=== PATIENT | female | born 1955 | race Caucasian/White ===

== ENCOUNTER → 2017-02-18 | Outpatient (CLI) | payer BC, OTHER ==
[~2017-02-18] MED LIST: ACIPHEX 20 MG T20 MG PO; ALBUTEROL NEB; CEFTRIAXONE2 G1 IV; CYMBALTA30 MG PO; ESTRACE1 MG PO; FLEXERIL PO; HYDROCODON-ACE1 EAC7 PO; IBUPROFEN 200200 M1 PO; NORCO 5-325 TA1 EACH PO; PREDNISONE 20 M20 M1 PO; PROTONIX40 M1 PO; SYMBICORT80 MCG/4.1 INH; TOBRAMYCIN300 MG/7.5 INH; TRIAMCINOLONE16.5 GM NS; VITAMIN D 5050000 I1 PO
--- NOTE | ~2017-02-18 | CNG ---
[facility] [place] [address] CYTO-NONGYN REPORT PROCEDURE Name: EDUARDOMARILIA GRAYSONAINE Room #: REG [facility] Jelly#: [id number] Admission: 02/18/17 Date of : 51 Discharge: Report #: [id number] Path Case #: [id number] CYTOPATHOLOGY REPORT COLLECTION DATE: 02/18/2017 RECEIVED DATE: 02/18/2017 SUBMITTING PHYS: Dr. Sterling Kimball OTHER PHYS: Dr. Reed Cobian CLINICAL HISTORY: Cath/Bronchoscopy/Bronchiectis SPECIMEN(S) RECEIVED: A.Bronchoalveolar lavage, Left lingula * * * * * * * * * * * * FINAL DIAGNOSIS: A. Lung, left lingula. Bronchoalveolar lavage: - No malignant cells identified. - Bronchial epithelial cells and rare alveolar macrophages present. - Marked acute inflammation. PATHOLOGIST: Luz Wise M.D. REPORT ELECTRONICALLY SIGNED BY: Luz Wise M.D. DATE/TIME: 02/19/2017 16:21 * * * * * * * * * * * * GROSS PATHOLOGY: A. Bronchoalveolar lavage, Left lingula: The specimen is submitted unfixed, labeled "Marilia Sharpe". Received by the Cytology Department is 20 mL of cloudy peach colored fluid. One ThinPrep slide was prepared. (mm 02.18.2017) PHARMACY MANAGER(S): JARAD Garrett([facility]) INITIAL CPT CODE(S): A; 36254 Professional services performed by [facility] at [facility] [address], [place] [address] Technical services performed by [facility] at [address] [place] [address]., [address], [place] [address]. [facility] [address] [place] [address], [facility] [address] [place], [place] [address] [place] [address] [place] [address] CYTO-NONGYN REPORT PROCEDURE Name: EDUARDOMARILIAROBIN ALEJANDRO Room #: REG CLMary Reaves#: [id number] Admission: 02/18/17 Date of : 51 Discharge: Report #: [id number] Path Case #: [id number] PHONE: [phone] DIRECTOR: Reinaldo Burnette M.D. * * * END OF REPORT * * *
== END ==
LOC: CATH 08:47 → 3N 02-20 10:30
DX: J18.9 Pneumonia, unspecified organism (principal); J47.1 Bronchiectasis with (acute) exacerbation; J44.9 Chronic obstructive pulmonary disease, unspecified

== ENCOUNTER 2017-02-26 15:04 | Inpatient (IN) | payer BC, OTHER ==
[~2017-02-26] VITALS: Ht 167.6 cm; Wt 72.6 kg
[~2017-02-26 15:04] MED LIST changes: -CEFTRIAXONE2 G1 IV; -PREDNISONE 20 M20 M1 PO; -TOBRAMYCIN300 MG/7.5 INH
[2017-02-26 16:00] VITALS: BP 101/58
[2017-02-26 17:30] LABS: HEMATOCRIT 34.1 % (37.0-47.0); HEMOGLOBIN 11.3 gm/dL (12.0-15.0); MCH 26.7 pg (26.0-34.0); MCV 80.7 fL (80.0-100.0); RBC 4.23 mil/uL (4.20-5.00); WBC 10.4 thou/uL (4.0-11.0)
[2017-02-26 17:45] LABS: CREATININE 0.6 mg/dL (0.6-1.0); POTASSIUM 3.4 mmol/L (3.5-5.1)
[2017-02-26 20:15] VITALS: BP 124/53
[2017-02-27] VITALS (7 sets, daily range): BP systolic 104–140; BP diastolic 46–81
[2017-02-27 06:18] LABS: ABSOLUTE NEUTROPHILS 6.5 thou/uL (1.4-8.2); BASOPHILS 0.2 % (0.0-2.0); HEMATOCRIT 33.3 % (37.0-47.0); HEMOGLOBIN 10.8 gm/dL (12.0-15.0); LYMPHOCYTES 16.3 % (24.0-44.0); MCH 26.2 pg (26.0-34.0); MCHC 32.4 g/dL (28.0-37.0); MCV 81.1 fL (80.0-100.0); MONOCYTES 2.8 % (1.0-8.0); PLATELET COUNT 294 thou/uL (150-400); POLYS 80.7 % (36.0-66.0); RBC 4.11 mil/uL (4.20-5.00); RDW 16.1 % (10.5-14.5)
[2017-02-27 06:32] LABS: MANUAL DIFF NO
[2017-02-27 06:35] LABS: CALCIUM 8.9 mg/dL (8.5-10.1); CREATININE 0.6 mg/dL (0.6-1.0); POTASSIUM 3.5 mmol/L (3.5-5.1)
[2017-02-27] MEDS ORDERED: TOBRAMYCIN300 MG/7.5 INH (15:27)
[2017-02-27] MEDS ORDERED: CEFTRIAXONE2 G1 IV (15:28)
[2017-02-27] MEDS ORDERED: PREDNISONE 20 M20 M1 PO (15:29)
== END 2017-02-27 19:48 | disposition home health service (06) | DRG 190 ==
LOC: 4S 15:04
PROVIDERS: Family Medicine; Internal Medicine Pulmonary Disease
PROC: 02HV33Z Insertion of Infusion Device into Superior Vena Cava, Percutaneous Approach (ICD-10-PCS; principal; 2017-02-26)
DX: J44.0 Chronic obstructive pulmonary disease with (acute) lower respiratory infection (principal); J15.1 Pneumonia due to Pseudomonas; J44.1 Chronic obstructive pulmonary disease with (acute) exacerbation; K21.9 Gastro-esophageal reflux disease without esophagitis; M54.9 Dorsalgia, unspecified; G89.29 Other chronic pain; Z79.899 Other long term (current) drug therapy; Z88.0 Allergy status to penicillin; Z88.1 Allergy status to other antibiotic agents; Z88.8 Allergy status to other drugs, medicaments and biological substances; Z88.2 Allergy status to sulfonamides; Z83.3 Family history of diabetes mellitus; Z82.49 Family history of ischemic heart disease and other diseases of the circulatory system; Z87.891 Personal history of nicotine dependence; Z87.01 Personal history of pneumonia (recurrent)
CPT/HCPCS: 10102; 27001

== ENCOUNTER → 2017-03-10 | Outpatient (CLI) | payer BC, OTHER ==
[~2017-03-10] MED LIST changes: +CEFTRIAXONE2 G1 IV; +PREDNISONE 20 M20 M1 PO; +TOBRAMYCIN300 MG/7.5 INH
== END ==
LOC: RAD 12:22
DX: J47.9 Bronchiectasis, uncomplicated (principal)

== ENCOUNTER → 2017-12-15 | Outpatient (CLI) | payer OTHER | LOC: RAD 14:00 | DX: J98.4 Other disorders of lung (principal) ==

== ENCOUNTER → 2019-02-21 | Outpatient (CLI) | payer OTHER | LOC: RAD 12:20 | DX: R05 Cough (principal); R06.00 Dyspnea, unspecified ==

== ENCOUNTER 2019-04-18 16:42 | Inpatient (IN) | payer OTHER ==
[~2019-04-18] VITALS: Ht 167.6 cm; Wt 70.3 kg
[2019-04-18 16:53] VITALS: BP 108/47
[2019-04-18] MEDS ORDERED: PREMARIN30 GM TOP (17:05)
[2019-04-18 17:28] LABS: HEMOGLOBIN 11.3 gm/dL (12.0-15.0); MCH 25.7 pg (26.0-34.0); MCHC 32.2 g/dL (28.0-37.0); MCV 79.7 fL (80.0-100.0); PLATELET COUNT 200 thou/uL (150-400); RBC 4.39 mil/uL (4.20-5.00); RDW 17.8 % (10.5-14.5); WBC 11.5 thou/uL (4.0-11.0)
[2019-04-18 17:32] LABS: ANION GAP 9 mmol/L (7-16); BUN 5 mg/dL (7-18); CALCIUM 8.3 mg/dL (8.5-10.1); CHLORIDE 98 mmol/L (98-107); CO2 27 mmol/L (21-32); CREATININE 0.6 mg/dL (0.6-1.0); GLUCOSE 101 mg/dL (74-106); POTASSIUM 3.2 mmol/L (3.5-5.1); SODIUM 134 mmol/L (136-145)
[2019-04-18 17:33] LABS: BE(vivo) 2.7 mmol/L (-2 to +3); HCO3 26.4 mmol/L (22.0-26.0); PCO2 VENOUS 37.6 mmHg (41.0-51.0); PO2 VENOUS 132.7 mmHg (35.0-45.0)
[2019-04-18 17:42] LABS: ALBUMIN 2.8 g/dL (3.4-5.0); SGOT 27 U/L (15-37); SGPT 20 U/L (30-65); TOTAL BILIRUBIN 0.6 mg/dL (<0.1-1.0); TOTAL PROTEIN 7.3 g/dL (6.4-8.2); TROPONIN-I <0.06 ng/mL (<0.06)
[2019-04-18 17:46] LABS: ABSOLUTE NEUTROPHILS 9.7 thou/uL (1.4-8.2); ANISOCYTOSIS 2+; MICROCYTES 1+; POLYCHROMASIA OCCASIONAL
[2019-04-18 18:31] VITALS: BP 112/53
[2019-04-18 19:29] VITALS: BP 108/48
[2019-04-18 19:58] VITALS: BP 105/47
--- NOTE | 2019-04-18 23:28 | NUR ---
Pt arrived from ED at 1942 via cart. A/OX4,VSS.Admission paperwork signed.Pt is up ad eamon encouraged to call for help as needed. Does have a productive cough,wheezes and c/o ribcage pain with coughing medicated per EMAR.IVF infusing via LAC w/o problems. Sputum/UA cultures pending collection. Will continue to monitor pt.
[2019-04-18 23:44] VITALS: BP 88/58
[2019-04-19 03:43] VITALS: BP 129/61
[2019-04-19 05:53] LABS: HEMATOCRIT 33.6 % (37.0-47.0); MCH 26.2 pg (26.0-34.0); MCHC 32.8 g/dL (28.0-37.0); MCV 79.7 fL (80.0-100.0); RBC 4.22 mil/uL (4.20-5.00); RDW 17.8 % (10.5-14.5); WBC 9.7 thou/uL (4.0-11.0)
[2019-04-19 06:18] LABS: CALCIUM 8.2 mg/dL (8.5-10.1); CREATININE 0.4 mg/dL (0.6-1.0); POTASSIUM 3.3 mmol/L (3.5-5.1)
[2019-04-19 08:57] VITALS: BP 108/47
--- NOTE | 2019-04-19 09:13 | EKG ---
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 : 1955 Requested By: Jace Layne Order Number: [id number] MD: Ti Carlisle Measurements Intervals [place] Rate: 106 P: 60 NM: 134 QRS: -14 QRSD: 77 T: 53 QT: 311 QTc: 413 Interpretive Statements Sinus tachycardia Probable left atrial enlargement Anteroseptal infarct, age indeterminate No previous ECG available for comparison Electronically Signed On 04-19-2019 9:13:17 CDT by Ti Carlisle [email or web address] ��������������������������������������������� <ELECTRONICALLY SIGNED> ���������������������������������������� By: Ti Carlisle MD ��������������������������������������������� 04/19/1915 54 Ti Carlisle MD /ANA CRISTINA
--- NOTE | 2019-04-19 13:23 | NUR ---
PT ADMITTED RELATED TO PNEUMONIA. CM REVIEWED CHART AND SPOKE WITH CARE TEAM. CM MET WITH PT AT BEDSIDE THIS DAY. PT IS A&O X4. CM ROLE INTRODUCED. PT INDICATED SHE LIVES IN A HOUSE WITH HER DTR WITH 4-5 STEPS TO ENTER AND A SET OF STEPS TO THE BASEMENT. 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 PT INDICATED SHE HAD HOME INFUSION THROUGH [facility] AND HH THROUGH [facility] IN THE PAST. CM TO FOLLOW INDICATED WITH DC PLANNING.
[2019-04-19 13:41] LABS: URINE BILIRUBIN NEGATIVE (Negative); URINE BLOOD NEGATIVE (Negative); URINE CLARITY CLEAR; URINE COLOR YELLOW; URINE GLUCOSE-RANDOM* NEGATIVE (Negative); URINE KETONES NEGATIVE (Negative); URINE LEUKOCYTES NEGATIVE (Negative); URINE NITRITE NEGATIVE (Negative); URINE PROTEIN (DIPSTICK) NEGATIVE (Negative); URINE SPECIFIC GRAVITY <= 1.005 (1.005-1.035); URINE UROBILINOGEN 0.2 E.U./dl (0.2-1.0)
[2019-04-19 15:31] VITALS: BP 102/49
[2019-04-19 20:31] VITALS: BP 109/53
--- NOTE | 2019-04-19 21:17 | NUR ---
PATIENT ALERT AND ORIENTED AND UP AD MATIAS. HAS PRODUCTIVE COUGH AND ON IV ANTIBIOTICS. FAMILY AT BEDSIDE.
--- NOTE | 2019-04-20 05:25 | NUR ---
ASSUMED CARE OF PT AT 1900HRS. PT AOX4 AND UP AD MATIAS. NO COMPAINTS OF NAUSEA OR PAIN THIS SHIFT. BREATHING AND ABX TREATMENT CONTINUED. PT WAS ABLE TO SLEEP PART OF THE SHIFT. VSS AND NO S/S OF ACUTE DISTRESS. WILL CONTINUE TO MONITOR.
[2019-04-20 06:25] LABS: HEMATOCRIT 32.7 % (37.0-47.0); HEMOGLOBIN 10.6 gm/dL (12.0-15.0); MCH 25.9 pg (26.0-34.0); MCHC 32.3 g/dL (28.0-37.0); MCV 80.2 fL (80.0-100.0); RBC 4.07 mil/uL (4.20-5.00); RDW 17.7 % (10.5-14.5); WBC 6.9 thou/uL (4.0-11.0)
[2019-04-20 06:45] LABS: CALCIUM 8.1 mg/dL (8.5-10.1); CREATININE 0.6 mg/dL (0.6-1.0); POTASSIUM 3.4 mmol/L (3.5-5.1)
[2019-04-20 08:34] VITALS: BP 113/64
[2019-04-20 15:18] VITALS: BP 106/56
--- NOTE | 2019-04-20 18:35 | NUR ---
Patient continues on IV ABT therapy for pnuemonia; she has tolerated these tx's well. Rales auscultated in right lung noel, clear in left lung noel. Vital signs WNL's, BS x's 4, ABD is soft et non-tender, skin is clean, warm, dry et intact; she denies pain. Patient has a productive, loose cough, sputum is yellowish colored. Patient has been up ad-eamon. IV in left anticubital space, is saline locked. Will continue to monitor et report to on-coming nurse.
[2019-04-20 19:00] VITALS: BP 104/53
--- NOTE | 2019-04-21 01:58 | NUR ---
ASSUMED CARE AROCECILYN 1900. AXOX4. SPECIMENS COLLECTED PER MD ORDER. NO S/S ACUTE DISTRESS NOTED OR REPORTED AT THIS TIME. WILL CONT TO MONITOR FOR ANY CHANGES IN CONDITION.
[2019-04-21 03:35] VITALS: BP 120/60
[2019-04-21 05:29] LABS: CALCIUM 8.6 mg/dL (8.5-10.1); CREATININE 0.6 mg/dL (0.6-1.0); POTASSIUM 3.4 mmol/L (3.5-5.1)
[2019-04-21 05:47] LABS: HEMATOCRIT 36.1 % (37.0-47.0); HEMOGLOBIN 11.4 gm/dL (12.0-15.0); MCH 25.7 pg (26.0-34.0); MCHC 31.6 g/dL (28.0-37.0); MCV 81.2 fL (80.0-100.0); RBC 4.45 mil/uL (4.20-5.00); RDW 17.8 % (10.5-14.5); WBC 6.9 thou/uL (4.0-11.0)
[2019-04-21 07:24] VITALS: BP 115/56
[2019-04-21 15:14] VITALS: BP 106/41
[2019-04-21 19:50] VITALS: BP 128/54
--- NOTE | 2019-04-21 20:23 | NUR ---
ASSUMED CARE OF PATIENT AT 0715, PATIENT ALERT AND ORIENTED X 4. PATIENT UP AD MATIAS IN HER ROOM. PATIENT DENIES PAIN THIS SHIFT. PATIENT HAS LEFT AC IV IN PLACE WITH NS AT 75CC/HR, RECEIVED 2 IV ANTIBIOTICS THIS SHIFT. POTASSIUM LEVEL 3.4, RECEIVED POTASSIUM 40MEQ X 1 THIS SHIFT. PATIENT CONTINUES TO HAVE CONGESTED COUGH, DIMINISHED LUNGS, SCHEDULED BREATHING TREATMENTS. WILL CONTINUE TO MONITOR.
--- NOTE | 2019-04-22 03:02 | NUR ---
ASSUMED CARE OF PT AT 1900HRS. PT AOX4 AND UP AD MATIAS. PT DENIES NAUSEA OR PAIN. BREATHING AND ABX TREATMENT CONTINUED. PT WAS ABLE TO SLEEP PART OF THE SHIFT. NO S/S OF ACUTE DISTRESS. WILL CONTINUE TO MONITOR.
[2019-04-22 08:32] VITALS: BP 123/65
[2019-04-22 10:54] LABS: ABSOLUTE NEUTROPHILS 7.2 thou/uL (1.4-8.2); BASOPHILS 0.5 % (0.0-2.0); EOSINOPHILS 0.2 % (0.0-3.0); HEMATOCRIT 34.1 % (37.0-47.0); HEMOGLOBIN 10.9 gm/dL (12.0-15.0); LYMPHOCYTES 11.2 % (24.0-44.0); MCH 25.8 pg (26.0-34.0); MCHC 32.1 g/dL (28.0-37.0); MCV 80.2 fL (80.0-100.0); MONOCYTES 3.1 % (1.0-8.0); PLATELET COUNT 290 thou/uL (150-400); RBC 4.25 mil/uL (4.20-5.00); RDW 17.7 % (10.5-14.5); WBC 8.5 thou/uL (4.0-11.0)
[2019-04-22 10:59] LABS: CALCIUM 8.9 mg/dL (8.5-10.1); CREATININE 0.7 mg/dL (0.6-1.0); POTASSIUM 4.1 mmol/L (3.5-5.1)
--- NOTE | 2019-04-22 12:24 | HC ---
[facility] [place] [address] CONSULTATION Name: MARILIA CLARK Room #: 459-P ADM IN M.R.#: [id number] Admission: 04/18/19 ������������������ Attend Phys: Pk Panda MD Discharge: ������������������ Date of : 51 Report #: [id number] THIS REPORT FOR: //name// CC: Reed Panda DATE OF SERVICE: 04/20/2019 INFECTIOUS DISEASE CONSULTATION REASON FOR CONSULTATION: I was asked to evaluate concerning bilateral pulmonary infiltrates. HISTORY OF PRESENT ILLNESS: The patient is a 63-year-old with underlying history of bronchiectasis and COPD with chronic bronchitis. Admitted with approximately 1 week of progressive cough, shortness of breath and most recent fever over 101 degrees. Initial onset was with cough and shortness of breath, became hoarse. Fever and chills. No known exposure to ill persons. No travel. This progressed and developed fever over 101 degrees. She has had chronic bronchitis and bronchiectasis. She uses a vest for physiotherapy 2 to 3 times a day. She is on inhalers. She has been on no recent corticosteroids. She has been worked out previously with CT imaging. She has undergone previous bronchoscopy in 2017 with evidence of Pseudomonas stutzeri pneumonia. AFB and fungus cultures were negative. Last PFTs in February of this year showed an FEV1 38% predicted. CT scan 03/29/2019 showed progressive disease over the last 2 years with bilateral bronchial thickening, bronchiectasis, mucus plugging and reticulonodular infiltrates. The patient has no HIV risk factors. No tuberculosis exposure. No travel outside the [place]. IMMUNIZATIONS: Up-to-date. She has been followed in the Pulmonary Clinic. Following admission, she was placed on azithromycin and ceftriaxone, later switched to cefepime. MEDICATIONS: As noted above with no additions. She is on corticosteroids. She was previously on tobramycin inhalation in 2017. Her insurance, however, quit paying and she discontinued this program. ALLERGIES: IODINE, CIPROFLOXACIN. PAST MEDICAL HISTORY: Pulmonary disease as noted above, cataract surgery, breast lumpectomy, bladder suspension surgery. FAMILY HISTORY: Diabetes. [facility] [address] [place] [address] CONSULTATION Name: EDUARDOMARILIA JAVON Room #: 459-P [facility] IN ..#: [id number] Admission: 04/18/19 ������������������ Attend Phys: Pk Panda MD Discharge: ������������������ Date of : 51 Report #: [id number] SOCIAL HISTORY: Past smoker, no significant alcohol intake, no HIV risks. REVIEW OF SYSTEMS: Ten-point review was negative other than what is described above. PHYSICAL EXAMINATION: VITAL SIGNS: She was afebrile and hemodynamically stable. GENERAL: She is alert and cooperative and pleasant, sitting up to the side of the bed. SKIN: Without rash or decubitus. No palpable adenopathy. The patient was thin in stature. EYES: Without scleral icterus. MOUTH: Without mucositis. NECK: Supple, with no thyromegaly or mass. LUNGS: She has scattered rhonchi heard posteriorly. No other adventitious sounds. No consolidation. HEART: Regular, without murmur, gallop or rub. ABDOMEN: Soft and nontender with no hepatosplenomegaly or mass. EXTREMITIES: Without clubbing, cyanosis or edema. NEUROLOGIC: Cranial nerves were intact. Strength in upper and lower extremities was normal. Deep tendon reflexes normal. Sensation intact in upper and lower extremities. Mood was normal with no anxiety or depression. BACK: Nontender with no CVA tenderness. GENITAL AND RECTAL: Not performed. LABORATORY STUDIES: Hemoglobin 10, WBC 6.9, platelet count 193,000. Creatinine 0.6. Gram stain shows gram-negative bacilli and yeast. Blood cultures are negative. Today, urinalysis unremarkable. Chest x-ray showed right greater than left basilar infiltrate on top of chronic pulmonary changes. IMPRESSION: 1. ____ bronchiectasis, chronic bronchitis, presents with an exacerbation of such. Also, has basilar infiltrates consistent with community-acquired pneumonia. Has previously been known to grow Pseudomonas stutzeri and concerned that she may have underlying mycobacterial infection. 2. Underlying chronic obstructive pulmonary disease. 3. Bronchiectasis. RECOMMENDATIONS: We will continue broad antibiotic coverage, pending further culture results. Check for legionella, Strep pneumoniae, histoplasma and screen for Mycobacterium avium complex rather atypical bacteria. She has no risk factors for tuberculosis. In addition, we will look into further maintenance therapies. Might consider suppressive azithromycin or possibly going back on tobramycin depending upon her culture results. I would like to ensure that her sputum cultures are negative for AFB prior to starting azithromycin program. We [address] [address] CONSULTATION Name: MARILIA CLARK Room #: 459-P ADM IN M.R.#: [id number] Admission: 04/18/19 ������������������ Attend Phys: Pk Panda MD Discharge: ������������������ Date of : 51 Report #: [id number] will also await screening cultures for Pseudomonas prior to initiating aerosolized tobramycin. ��������������������������������������������� <ELECTRONICALLY SIGNED> ���������������������������������������� By: Fidencio Johnson MD ��������������������������������������������� 04/22/19 1224 [id number] Fidencio Johnson MD /nt
[2019-04-22 14:29] VITALS: BP 135/65
--- NOTE | 2019-04-22 20:35 | NUR ---
ASSUMED CARE OF PATIENT AT 0715, PATIENT ALERT AND ORIENTED X 4. UP AD MATIAS IN ROOM. VSS. COUGH IMPROVING, SCHEDULED BREATHING TREATMENTS. C/O CONSTIPATION THIS AM, RECEIVED MIRALAX, HAD 2 SMALL STOOLS. PATIENT HAS LEFT AC IV WITH NS AT 75CC/HR. STILL WAITING ON CULTURE RESULTS. ROOM AIR, WILL CONTINUE TO MONITOR.
[2019-04-22 21:15] VITALS: BP 109/82
--- NOTE | 2019-04-23 03:27 | NUR ---
PATIENT AOX4 MAKES NEEDS KNOWN. PATIENT IS UP AT MATIAS.PATIENT HAS A PRODUCTIVE COUGH THIS SHIFT, SPUTUM COLLECTED AND TAKEN TO THE LAB. NO SHORTNESS OF AIR OR DISTRESS NOTED THIS SHIFT. PATIENT IN BED SLEEP AT THIS TIME BREATHING REGULAR AND UNLABOURED.
[2019-04-23 05:10] VITALS: BP 142/58
[2019-04-23 07:54] VITALS: BP 137/78
[2019-04-23 14:06] LABS: HISTOPLASMA MYCELIAL-ID Negative (Negative)
--- NOTE | 2019-04-23 15:21 | NUR ---
Assumed pt care this am, ray is at the bedside. Pt verbalizaed dizzyness and pain with movement concentrated on the back of her neck and head. Pain is manged with medications, preferred medication is ibuprofen and acetamenophen. PT was able to work with the pt, and she was able to ambualte to go to the toilet do some adl's and get back to bed, dizzyness has been noted but was able to bounce back once pt was able to rest. POC being followed, pt being monitored for signs of distress, currently asleep.
[2019-04-23 16:21] VITALS: BP 119/67
[2019-04-23 17:10] LABS: HISTOPLASMA MYCELIAL-CF Negative (Neg:<1:2)
[2019-04-23 19:17] VITALS: BP 122/63
--- NOTE | 2019-04-24 03:00 | NUR ---
PATIENT AOX4 MAKES NEEDS KNOWN. PATIENT TOLD THIS NURSE THE FORGOT TO ORDER TESSALON PERLES FOR HER COUGH. CALLED CRISIS COUNSELOR NEW ORDER FOR TESSALON PERLES Q 8 HOURS. NO COUGH/ SHORTNESS OF AIR/DISTRESS NOTED THIS SHIFT. PATIENT ON ROOM AIR O2 SAT > 95%.PATIENT DENIED PAIN OR DISCOMFORT. PATIENT IN BED ASLEEP AT THIS TIME BREATHING REGULAR AND UNLABOURED.
[2019-04-24 07:45] VITALS: BP 90/42
[2019-04-24 08:00] VITALS: BP 142/55
[2019-04-24] MEDS ORDERED: TESSALON PERLE100 MG PO (12:14)
[2019-04-24] MEDS ORDERED: LEVAQUIN 750 M750 MG PO (12:15)
[2019-04-24] MEDS ORDERED: PREDNISONE 10 M10 MG PO (12:44)
[2019-04-24 12:49] VITALS: BP 142/55
--- NOTE | 2019-04-24 13:26 | NUR ---
FOR 04/23/19 AM SHIFT Assumed pt care this am, VS have been stable, slight discomfort was verbalized on her chest due to coughing from the previous night. Pt is up at eamon. No other signs or verbalizations of distress have been noted. Pt does express she wants to go home heidy. POC followed. endoersed to the night nurse. FOR 04/24/19 Assumed pt care this am, pt has not had a bad coughing episode today. Was seen by the MD's, DC instructions and prescriptions given to the pt, IV removed, POC followed, medication and diet is well toleated. Awaiting family to pepper picker the pt.
[2019-04-25 22:07] LABS: ADENOVIRUS Negative (Negative); INFLUENZA A Negative (Negative); INFLUENZA B Negative (Negative); METAPNEUMOVIRUS Negative (Negative); PARAINFLUENZA 1 Negative (Negative); PARAINFLUENZA 2 Negative (Negative); PARAINFLUENZA 3 Negative (Negative); RHINOVIRUS Positive (Negative); RSV A Negative (Negative); RSV B Negative (Negative)
== END 2019-04-24 14:08 | disposition home or self-care (01) | DRG 871 ==
LOC: ER 16:42 → EROBS 18:05 → 4W 18:05
PROVIDERS: Emergency Medicine; Internal Medicine; Pediatrics; Specialist; ADMIT Hospitalist
DX: A41.9 Sepsis, unspecified organism (principal); J18.9 Pneumonia, unspecified organism; J47.1 Bronchiectasis with (acute) exacerbation; E87.6 Hypokalemia; B96.5 Pseudomonas (aeruginosa) (mallei) (pseudomallei) as the cause of diseases classified elsewhere; Z16.24 Resistance to multiple antibiotics; D64.9 Anemia, unspecified; Z88.1 Allergy status to other antibiotic agents; Z91.041 Radiographic dye allergy status; Z88.0 Allergy status to penicillin; Z88.2 Allergy status to sulfonamides; Z79.899 Other long term (current) drug therapy; Z98.49 Cataract extraction status, unspecified eye; Z83.3 Family history of diabetes mellitus; Z87.891 Personal history of nicotine dependence; Z82.49 Family history of ischemic heart disease and other diseases of the circulatory system
CPT/HCPCS: 10040

== ENCOUNTER → 2019-05-05 | Outpatient (CLI) | payer OTHER ==
[~2019-05-05] MED LIST changes: +LEVAQUIN 750 M750 MG PO; +PREDNISONE 10 M10 MG PO; +PREMARIN30 GM TOP; +TESSALON PERLE100 MG PO
== END ==
LOC: RAD 10:03
DX: J84.10 Pulmonary fibrosis, unspecified (principal); J98.4 Other disorders of lung; Z88.8 Allergy status to other drugs, medicaments and biological substances; Z88.2 Allergy status to sulfonamides

== ENCOUNTER → 2021-02-26 | Outpatient (CLI) | payer OTHER ==
[~2021-02-26] MED LIST changes: +ARNUITY ELLIPT50 MCG INH; +DIFLUCAN100 MG PO; +IPRATROPIUM BRO30 ML NASAL; +PREMARIN0.9 MG PO; +SPIRIVA RESPIMAT4 G1 INH; +ZITHROMAX250 MG PO
[2021-02-26 11:45] VITALS: BP 111/36
--- NOTE | 2021-02-26 12:40 | NUR ---
VAT PLACED A PICC FOR OUTPT ABX
--- NOTE | 2021-02-26 13:45 | NUR ---
HERE FOR PICC LINE PLACEMENT AND 1ST DOSE MEROPENEM. PICC PLACED BY VASCULAR ACCESS NURSE WITH PLACEMENT CONFIRMATION RECEIVED. PT TOLERATED WELL. DAMARI PRICE, WITH MALICK CAME TO DO FULL PT TEACHING FOR HOME INFUSIONS. PT WITH LOTS OF QUESTIONS, ALL ANSWERED. VERY ANXIOUS, ESPECIALLY ABOUT FINANCIAL RESPONSIBILITY. TOLERATED MEROPENEM WITH NO S/S REACTION. LABS NOT DRAWN HERE. FORWARDED ORDER TO [facility] WHO WILL HAVE HOME HEALTH NURSING DRAW THE INITIAL LABS AND THE WEEKLY LABS. PT DISMISSED POST IN STABLE CONDITION.
[2021-02-26 14:08] VITALS: BP 111/36
== END ==
LOC: OPONC 09:52 → EDSTATUS 11:01 → OPONC 11:07
PROVIDERS: ATTEND Specialist
DX: J15.6 Pneumonia due to other Gram-negative bacteria (principal); J47.1 Bronchiectasis with (acute) exacerbation
CPT/HCPCS: 27000; 95000

== ENCOUNTER 2021-03-15 18:50 | Inpatient (IN) | payer OTHER ==
[~2021-03-15] VITALS: Ht 167.6 cm; Wt 70.8 kg
--- NOTE | ~2021-03-15 | EMS ---
[facility] [address] [place] [address] EMS Patient Care Report Name: MARILIA CLARK Room #: REG ARTURO Reaves#: [id number] Admission: 03/15/21 Attend Phys: Discharge: Date of : 51 Report #: [id number] THIS REPORT FOR: //name// Report Transmitted: 03/15/2021 20:[address] [facility] Incident [id number] @ 03/15/2021 17:54 Incident Location [address] [place], [facility] Patient MARILIA CLARK Female, 65 Years 1955 Patient Address [address] [place] [address] Patient History Other, Patient Allergies Sulfa,Iodine,Cipro, Patient Medications Pantoprazole, Chief Complaint SOA Disposition Transported No Lights/[employer] Dispatch Reason Chest Pain (Non-Traumatic) Transported To [facility] units dispatched to the residence of a 65 year old female pt with a chief complaint of SOA. Upon arrival crew located pt sitting upright in chair. Pt presented with a patent airway and warm dry skin. Pt stated that her SOA had subsided and stated she was concerned over her picc line bleeding. Pt had a [facility] [address] [place] [address] EMS Patient Care Report Name: MARILIA CLARK Room #: REG ER Jelly#: [id number] Admission: 03/15/21 Attend Phys: Discharge: Date of : 51 Report #: [id number] picc line placed in her right AC for iv antibiotic infusions. Pt stated that after her infusion she experienced a sudden numbness in her right arm and chest pain. Pt stated that it was "normal" for her to experience the chest pain but the numbness in her arm was new. Pt stated that the symptoms had subsided and reported she was feeling SOA from panicking about the bleeding. Bleeding was controlled at this time. There appeared to be no active bleeding or damage to the picc line at this time. Pt was placed on stretcher by crew and secured using straps. 3 lead ECG was preformed and pt was monitored for rhythm changes. Pt stated that when the episode occurred she was unable to move her right hand. Pt was negative for arm drift, slurred speech or facial droppage at this time. Pt stated her main concern at this time was her picc line. Pt was transported without incident to [facility] and care was transferred to ED staff. Initial Vitals @18:30P: 93,R: 22,CO: 0,SpO2: 94, @18:18P: 103,SpO2: 91, @18:20P: 103,BP: 110/66, @18:36P: 83,R: 23,BP: 117/63,Pain: 0/10,GCS: 15,SpO2: 95,Revised Trauma: 12, @18:07P: 105,BP: 109/54,Pain: 0/10,GCS: 15,CO: 0,SpO2: 93, Assessments @18:07MENTAL:Person Oriented,Time Oriented,Place Oriented,Event Oriented,SKIN:HEENT:Head/Face: No Abnormalities,LUNG SOUNDS:General: No Abnormalities,ABDOMEN:General: No Abnormalities,PELVIS//GI:No Abnormalities,EXTREMITIES:Right Arm: Other,Capillary Refill: Right Upper: < 2 Sec,Left Arm: No Abnormalities,Left Leg: No Abnormalities,Right Leg: No Abnormalities,PULSE:Radial: 2+ Normal,NEURO:No Abnormalities,@18:25MENTAL:No Abnormalities,SKIN:No Abnormalities,HEENT:Head/Face: No Abnormalities,Eyes: No Abnormalities,Neck/Airway: No Abnormalities,LUNG SOUNDS:General: No Abnormalities,Left Upper: No Abnormalities,Right Upper: No Abnormalities,Left Lower: No Abnormalities,Right Lower: No Abnormalities,ABDOMEN:General: No Abnormalities,Left Upper: No Abnormalities,Right Upper: No Abnormalities,Left Lower: No Abnormalities,Right Lower: No Abnormalities,PELVIS//GI:No Abnormalities,EXTREMITIES:Right Arm: Other,Capillary Refill: Right Upper: < 2 Sec,Left Arm: No Abnormalities,Left Leg: No Abnormalities,Right Leg: No Abnormalities,PULSE:Radial: 2+ Normal,NEURO:No Abnormalities, Impression Shortness of breath Procedures @18:07ALS AssessmentResponse: UnchangedSucceeded Timeline 17:52,Call Received [address] [address] EMS Patient Care Report Name: EDUADROMARILIA JAVON Room #: REG ARTURO Reaves#: [id number] Admission: 03/15/21 Attend Phys: Discharge: Date of : 51 Report #: [id number] 17:52,Psap Call 17:54,Dispatched 17:55,En Route 18:03,On Scene 18:06,At Patient 18:07,ALS Assessment,Response: UnchangedSucceeded, 18:07,BP: 109/54 M,PULSE: 105,RR: R,SPO2: 93 Ox,ETCO2: ,BG: ,PAIN: 0,GCS: 15, 18:18,BP: / M,PULSE: 103,RR: R,SPO2: 91 Ox,ETCO2: ,BG: ,PAIN: ,GCS: , 18:20,BP: 110/66 M,PULSE: 103,RR: R,SPO2: Ox,ETCO2: ,BG: ,PAIN: ,GCS: , 18:22,Depart Scene 18:30,BP: / M,PULSE: 93,RR: 22 R,SPO2: 94 Ox,ETCO2: ,BG: ,PAIN: ,GCS: , 18:36,BP: 117/63 M,PULSE: 83,RR: 23 R,SPO2: 95 Ox,ETCO2: ,BG: ,PAIN: 0,GCS: 15, 18:45,At Destination 18:56,Call Closed Disclaimer v1.1 Copyright 2020 [employer] This EMS Care Summary contains data elements from the applicable legal record (which may be displayed differently). It is designed to provide pertinent information for the following purposes: continuity of care, clinical quality, and state data reporting. The complete legal record is available to ED staff and administrators of the receiving hospital in [employer] Patient Tracker. All data is provided "as is."
[2021-03-15 18:51] VITALS: BP 126/66
[2021-03-15 20:08] LABS: ABSOLUTE NEUTROPHILS 5.5 thou/uL (1.4-8.2); BASOPHILS 0.5 % (0.0-2.0); EOSINOPHILS 16.1 % (0.0-3.0); HEMOGLOBIN 10.9 gm/dL (12.0-15.0); LYMPHOCYTES 20.2 % (24.0-44.0); MCH 26.7 pg (26.0-34.0); MCHC 33.1 g/dL (28.0-37.0); MCV 80.5 fL (80.0-100.0); MONOCYTES 4.9 % (1.0-8.0); PLATELET COUNT 205 thou/uL (150-400); POLYS 58.3 % (36.0-66.0); RBC 4.09 mil/uL (4.20-5.00); RDW 16.5 % (10.5-14.5); WBC 9.5 thou/uL (4.0-11.0)
[2021-03-15 20:18] LABS: ANION GAP 6 mmol/L (7-16); BUN 9 mg/dL (7-18); CALCIUM 8.8 mg/dL (8.5-10.1); CHLORIDE 102 mmol/L (98-107); CO2 31 mmol/L (21-32); CREATININE 0.7 mg/dL (0.6-1.0); GLUCOSE 94 mg/dL (74-106); POTASSIUM 3.6 mmol/L (3.5-5.1); SODIUM 139 mmol/L (136-145)
[2021-03-15 20:27] LABS: ALBUMIN 3.4 g/dL (3.4-5.0); SGOT 21 U/L (15-37); SGPT 20 U/L (14-59); TOTAL BILIRUBIN 0.5 mg/dL (0.2-1.0); TOTAL PROTEIN 7.3 g/dL (6.4-8.2); TROPONIN-I <0.06 ng/mL (<0.06)
[2021-03-16] VITALS (7 sets, daily range): BP systolic 104–123; BP diastolic 42–58
--- NOTE | 2021-03-16 03:20 | NUR ---
Pt is an ER admit. Pt presented with chest pain and numbness to arm. Pt is stable upon arrival to floor. Admission assessment and education completed. Pt is ambulatory. Pt currently denies chest pain. PICC line present on arrival to hospital. No acute event reported through the he night. Pt is NPO. Continue to monitor. No further needs at this time.
[2021-03-16 06:44] LABS: CHOLESTEROL 182 mg/dL (<200); HDL CHOLESTEROL 73 mg/dL (>40); LDL CHOLESTEROL 90 mg/dL (<100); TC:HDL 2.5 Ratio (Not establshd); TRIGLYCERIDE 97 mg/dL (<150); VLDL 19 mg/dL (<40)
--- NOTE | 2021-03-16 08:46 | EKG ---
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 : 1955 Requested By: Reed Sánchez Order Number: [id number] MD: Sterling Richey Measurements Intervals [place] Rate: 79 P: 31 FL: 142 QRS: -18 QRSD: 103 T: 52 QT: 376 QTc: 432 Interpretive Statements Sinus rhythm Borderline left axis deviation Low voltage, precordial leads Probable anteroseptal infarct, old Compared to ECG 04/18/2019 16:55:12 Low QRS voltage now present Sinus tachycardia no longer present Myocardial infarct finding still present Electronically Signed On 03-16-2021 8:46:06 CDT by Sterling Richey [email or web address] <ELECTRONICALLY SIGNED> By: Sterling Richey MD, FACC 03/16/21 [phone] Sterling Richey MD, [facility] /EPI
--- NOTE | 2021-03-16 08:46 | EKG ---
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
[2021-03-16] MEDS ORDERED: DIFLUCAN100 MG PO (10:35)
[2021-03-16] MEDS ORDERED: ZITHROMAX250 MG PO (10:35)
--- NOTE | 2021-03-16 10:36 | 2DMMODE ---
[facility] [place] [address] 2 D/M-MODE ECHOCARDIOGRAM Name: MARILIA CLARK Room #: 211-P ADM IN M.R.#: [id number] Admission: 03/15/21 Attend Phys: Cesilia Bass MD Discharge: Date of : 51 Report #: [id number] THIS REPORT FOR: cc: Reed Cobian David J. DO Santiago, Patrick MD [facility] ~ APPROVED REPORT Study performed: 03/16/2021 09:25:15 EXAM: Comprehensive 2D, Doppler, and color-flow Echocardiogram Patient Location: In-Patient Room #: 211 BSA: 1.86 HR: 75 bpm BP: 110/58 mmHg Rhythm: NSR Other Information Study Quality: Adequate Indications Chest Pain R hand numbness 2D Dimensions RVDd: 25.57 mm IVSd: 10.23 (7-11mm) LVOT Diam: 19.78 (18-24mm) LVDd: 39.72 mm PWd: 12.41 (7-11mm) Ascending Ao: 30.08 (22-36mm) LVDs: 30.47 (25-40mm) Left Atrium: 32.76 (27-40mm) Aortic Root: 29.88 mm Volumes Left Atrial Volume (Systole) Single Plane 4CH: 22.38 mL Single Plane 2CH: 41.42 mL Biplane LA Volume: 34.00 mL LA ESV Index: 18.00 mL/m2 Aortic Valve AoV Peak Nadir.: 1.34 m/s AO Peak Gr.: 7.20 mmHg LVOT Max P.19 mmHg LVOT Max V: 0.89 m/s [facility] [place] [place] [address] 2 D/M-MODE ECHOCARDIOGRAM Name: MARILIA CLARK Room #: 211-P [facility] IN [facility]#: [id number] Admission: 03/15/21 Attend Phys: Cesilia Bass MD Discharge: Date of : 51 Report #: [id number] Vmax: 2.04 cm2 Mitral Valve E/A Ratio: 0.8 MV Decel. Time: 1934.74 ms MV E Max Nadir.: 0.38 m/s MV A Nadir.: 0.46 m/s MV PHT: 561.07 ms MVA (PHT): 2.83 cm2 IVRT: 69.20 ms Pulmonary Valve PV Peak Nadir.: 1.09 m/s PV Peak Gr.: 4.71 mmHg Pulmonary Vein P Vein S: 0.64 m/s P Vein A: 0.32 m/s P Vein D: 0.36 m/s P Vein A Dur.: 83.0 msec P Vein S/D Ratio: 1.78 Tricuspid Valve TR Peak Nadir.: 1.68 m/s RAP Estimate: 7.00 mmHg TR Peak Gr.: 11.30 mmHg RVSP: 18.00 mmHg Left Ventricle The left ventricle is normal size. There is normal LV segmental wall motion. There is normal left ventricular wall thickness. Left ventricular systolic function is normal. The left ventricular ejection fraction is within the normal range. LVEF is 50-55%. The left ventricular diastolic function is normal. Right Ventricle The right ventricle is normal size. The right ventricular systolic function is normal. Atria The left atrium size is normal. The right atrium size is normal. Aortic Valve The aortic valve is normal in structure. No aortic regurgitation is present. There is no aortic valvular stenosis. Mitral Valve The mitral valve is normal in structure. There is no mitral valve regurgitation noted. No evidence [place] [address] 2 D/M-MODE ECHOCARDIOGRAM Name: MARILIA CLARK JAVON Room #: [facility]-P [facility] IN ..#: [id number] Admission: 03/15/21 Attend Phys: Cesilia Bsas MD Discharge: Date of : 51 Report #: [id number] Tricuspid Valve The tricuspid valve is normal in structure. Trace tricuspid regurgitation. PAP 18 mmHg. Pulmonic Valve The pulmonary valve is normal in structure. Trace to mild pulmonic regurgitation. Great Vessels The aortic root is normal in size. IVC is normal in size and collapses >50% with inspiration. Pericardium There is no pericardial effusion. There is no pleural effusion. <Conclusion> Normal left ventricular size/wall thickness Ejection fraction 60% Normal right ventricular size/function Normal atrial size Color-flow Doppler study was performed of the aortic/mitral/tricuspid/pulmonary valve Normal aortic/mitral valve structure and function Trace tricuspid valve insufficiency Pulmonary systolic pressure estimated 18 mmHg Normal aortic root size No pericardial effusion <ELECTRONICALLY SIGNED> By: Sterling Richey MD, FACC 03/16/21 1036 [id number] Sterling Richey MD, FACC /INF
[2021-03-16 16:30] LABS: CALCIUM 8.6 mg/dL (8.5-10.1); CREATININE 0.7 mg/dL (0.6-1.0)
--- NOTE | 2021-03-16 17:47 | NUR ---
ASSESSMENT CHARTED - MEDS PER [facility] BALBUE[facility] DIET AND FLUIDS. NO CO'S OF PAIN OR NASUEA. SEEN BY CARDIOLOGY THIS AM - NEURO THIS AFTERNOON - PT TO CTA OF HEAD DONE THIS EVENING - GIVEN BENADRYL PRIOR TO TEST. PT UP AD MATIAS. IF CTA OKAY THEN PATIENT MAY DISCHARGE THIS EVENING.
--- NOTE | 2021-03-17 03:47 | NUR ---
Assumed pt care at 1900. Pt is alert and oriented. No sign of distress noted. Pt is upset becasuse she wsas told that her CT of the head was going to be done early but it hasn't been done. She was hoping to get discharged but not unless the CTA was done and resulted. CT of the head was finally done. Assessment completed and documented. Currently denies any pain. Scheduled meds administered to pt. No acute events through the night. Continue to monitor. No further needs at this time.
[2021-03-17 04:09] VITALS: BP 120/45
[2021-03-17 05:36] LABS: GLYCOHEMOGLOBIN (HGB A1C) 5.3 % (4.8-5.6)
[2021-03-17 08:31] VITALS: BP 99/55
[2021-03-17 12:07] VITALS: BP 99/55
--- NOTE | 2021-03-17 13:05 | NUR ---
ASSESSMENT CHARTED - MEDS PER [facility]RIA - ESHA DIET AND FLUIDS. NO CO'S OF PAIN OR NAUSEA. UP AD MATIAS IN ROOM - HOME THIS AFTERNOON AFTER LUNCH - INSGTRUCTION RE HOME MEDS. CARE AND FOLLOW GIVEN TO PATIENT - LEFT UNIT AMBULATORY - HOME VIA CAB NO CO'S AT TIME OF D/C.
--- NOTE | 2021-03-22 12:12 | HC ---
[facility] [place] [address] CONSULTATION Name: MARILIA CLARK Room #: 211-P [facility] IN M.R.#: [id number] Admission: 03/15/21 Attend Phys: Cesilia Bass MD Discharge: 03/17/21 Date of : 51 Report #: [id number] THIS REPORT FOR: cc: Reed Cobian David J. DO Khosla, Parveen K. MD ~ DATE OF SERVICE: 03/16/2021 HISTORY OF PRESENT ILLNESS: This is a 65-year-old female patient who was evaluated by me for an episode she had. She said her right hand was just not coordinated. It lasted only a few minutes. She was able to move it, but it was very heavy. It resolved spontaneously. She never had TIA before. She has no history of strokes in the past. She has a PICC line for antibiotics. REVIEW OF SYSTEMS: Indicates she has a bronchiectasis. She had chest pain and is being addressed by Cardiology. In fact, chest pain was the main complaint and this TIA-like symptoms were after that. She is taking IV antibiotics. She has taken azithromycin in the past. She has bronchiectasis. She had a chest CTA yesterday, which was unremarkable. There was some question about allergies, they gave her some Benadryl yesterday and there was no allergy yesterday with the dye. She does have a history of COPD. She has a breast lump removed, dental implant, pneumonia, bronchiectasis, hip replacement. That was a relevant 14-point review of system. PAST MEDICAL HISTORY: Negative for TIA. FAMILY HISTORY: Negative for early age stroke. SOCIAL HISTORY: She is not a smoker, but she used to be. PHYSICAL EXAMINATION: Indicate she is alert, responsive, able to follow simple and complex commands. Her speech, concentration, fund of knowledge and memory is at her baseline. Cranial nerve examination II-XII looks unremarkable. Her strength, sensation, reflexes and tone is symmetrical. There are no meningeal or carotid sign. Cardiorespiratory and abdominal examinations appear unremarkable. I could not look at the fundus. Blood pressure is 120/51, respirations 18, pulse 83, temperature is 98.3. She has no edema, cyanosis or jaundice. Her hearing and vision looks adequate. There is no thyroid mass. There is no carotid bruit. IMPRESSION AND PLAN: This patient has symptoms which can be consistent with a transient ischemic attack. I discussed with her the workup, which can be done. One of the options will be to do a CT angiogram of the head and neck and that will exclude any pathology. The patient apparently was allergic to dye one time, but yesterday she had the test and did not have any allergic reaction. I discussed her options with her and I discussed with her that we can give her [address] [address] CONSULTATION Name: MARILIA CLARK Room #: 211-P [facility] IN M.R.#: [id number] Admission: 03/15/21 Attend Phys: Cesilia Bass MD Discharge: 03/17/21 Date of : 51 Report #: [id number] same Benadryl or do that or we can do the MRI on Thursday. She wants to proceed with a CT angiogram. We will give her Benadryl and we will go ahead with 50 mg and get that test done. She understands the complication, which can occur and I will check a BUN and creatinine stat and give her some fluids before that. If CT angio is normal, she can go and follow up with our office in about 2 weeks. Thank you very much for this referral. <ELECTRONICALLY SIGNED> By: Ramesh Coleman MD 03/22/21 1212 1422 0010 Ramesh Coleman MD /nt
== END 2021-03-17 12:30 | disposition home or self-care (01) | DRG 195 ==
LOC: ER 18:50 → EROBS 21:59 → 2N 21:59
PROVIDERS: Emergency Medicine; Nurse Practitioner Family; Psychiatry & Neurology Neuromuscular Medicine; ADMIT Internal Medicine; ATTEND Internal Medicine
DX: J18.9 Pneumonia, unspecified organism (principal); J44.9 Chronic obstructive pulmonary disease, unspecified; K21.9 Gastro-esophageal reflux disease without esophagitis; R07.9 Chest pain, unspecified; Z96.652 Presence of left artificial knee joint; Z20.822 Contact with and (suspected) exposure to COVID-19; Z79.899 Other long term (current) drug therapy; Z87.01 Personal history of pneumonia (recurrent); Z88.0 Allergy status to penicillin; Z88.8 Allergy status to other drugs, medicaments and biological substances; Z88.2 Allergy status to sulfonamides; Z87.891 Personal history of nicotine dependence; Z72.89 Other problems related to lifestyle
CPT/HCPCS: 10081